=== PATIENT | female | born 1980 | race Caucasian/White ===

== ENCOUNTER 2020-05-16 05:37 | Day surgery (SDC) | payer BC ==
[2020-05-13 09:45] LABS: HEMATOCRIT 37.2 % (36.0-47.0); HEMOGLOBIN 12.5 g/dL (12.0-15.5); MEAN CORPUSCULAR HEMOGLOBIN 28.9 pg (27.0-33.4); MEAN CORPUSCULAR HGB CONC 33.7 g/dL (32.0-36.0); MEAN CORPUSCULAR VOLUME 86 fl (80-97); PLATELET COUNT 318 10^3/uL (150-450); RED BLOOD COUNT 4.32 10^6/uL (3.72-5.28); RED CELL DISTRIBUTION WIDTH 13.9 % (11.5-14.0); WHITE BLOOD COUNT 8.8 10^3/uL (4.0-10.5)
[2020-05-13 09:55] LABS: APPEARANCE,URINE SLIGHTLY-CLOUDY; BILIRUBIN,URINE NEGATIVE (NEGATIVE); COLOR,URINE YELLOW; GLUCOSE, URINE NEGATIVE (NEGATIVE); KETONES,URINE NEGATIVE (NEGATIVE); LEUKOCYTE ESTERASE,URINE NEGATIVE (NEGATIVE); NITRITE,URINE NEGATIVE (NEGATIVE); PROTEIN,URINE NEGATIVE (NEGATIVE); URINE SPECIFIC GRAVITY 1.024; UROBILINOGEN,URINE NEGATIVE mg/dL (<2.0)
[2020-05-13 09:59] LABS: ALBUMIN 3.6 g/dL (3.5-5.0); ALKALINE PHOSPHATASE 77 U/L (38-126); ANION GAP 5 (5-19); ASPARTATE AMINO TRANSFERASE 19 U/L (14-36); BILIRUBIN,TOTAL 0.3 mg/dL (0.2-1.3); BLOOD UREA NITROGEN 13 mg/dL (7-20); CALCIUM 8.9 mg/dL (8.4-10.2); CARBON DIOXIDE 25 mmol/L (22-30); CHLORIDE 107 mmol/L (98-107); GLUCOSE 92 mg/dL (75-110); POTASSIUM 4.2 mmol/L (3.6-5.0); TOTAL PROTEIN 6.5 g/dL (6.3-8.2)
[~2020-05-16 05:37] MED LIST: CEFAZOLIN 2 GM/D5W RTU 2 GM/50 ML RTUPB IV ONE; CEFAZOLIN 2 GM/D5W RTU 2 GM/50 ML RTUPB IV PRN; LACTATED RINGERS 1000 ML IV PRN; LIDOCAINE 0.5% INJ-PF (5 MG/ML) 50 ML SDV SUBCUT PRN
[2020-05-16] MEDS ORDERED: MIDAZOLAM 2 MG/2 ML INJ ONE (07:11)
[2020-05-16] MEDS ORDERED: KETOROLAC TROMETHAMINE 60 MG/2 ML SDV ONE (07:11)
[2020-05-16] MEDS ORDERED: EPHEDRINE SULFATE INJ 50 MG/1 ML AMPULE ONE (07:11)
[2020-05-16] MEDS ORDERED: FENTANYL CITRATE INJ/PF 100 MCG/2 ML AMPUL ONE (07:11)
[2020-05-16] MEDS ORDERED: ONDANSETRON HCL INJ/PF 4 MG/2 ML SDV ONE (07:12)
[2020-05-16] MEDS ORDERED: PROPOFOL INJ 200 MG/20 ML VIAL IV ONE (07:12)
[2020-05-16] MEDS ORDERED: HYDROMORPHONE HCL INJ/PF 2 MG/ML AMPULE ONE (07:12)
[2020-05-16] MEDS ORDERED: VECURONIUM BROMIDE INJ 10 MG VIAL IV ONE (08:41)
[2020-05-16] MEDS ORDERED: GLYCOPYRROLATE 1 MG/5 ML VIAL ONE (08:41)
[2020-05-16] MEDS ORDERED: SUCCINYLCHOLINE CHLORIDE INJ 200 MG/10 ML VIAL ONE (08:41)
[2020-05-16] MEDS ORDERED: NEOSTIGMINE METHYLSULFATE 10 MG/10 ML VIAL ONE (08:41)
[2020-05-16] MEDS ORDERED: FENTANYL CITRATE INJ/PF 100 MCG/2 ML AMPUL IV PRN ×3 (08:50)
[2020-05-16] MEDS ORDERED: MEPERIDINE HCL/PF INJ 25 MG/1 ML DISP.SYRIN IV PRN (08:50)
[2020-05-16] MEDS ORDERED: MORPHINE SULFATE 10 MG/ML INJ IV PRN (08:50)
[2020-05-16] MEDS ORDERED: OXYCODONE-ACETAMINOPHEN 5-325 MG TABLET PO PRN ×3 (08:50→09:35)
[2020-05-16] MEDS ORDERED: PROMETHAZINE HCL INJ 25 MG/1 ML VIAL IV PRN ×3 (08:50→09:35)
[2020-05-16] MEDS ORDERED: DIPHENHYDRAMINE HCL 50 MG/ML VIAL IV PRN (08:50)
[2020-05-16] MEDS ORDERED: ONDANSETRON HCL INJ/PF 4 MG/2 ML SDV IV PRN (08:50)
[2020-05-16] MEDS ORDERED: SIMETHICONE 80 MG TAB.CHEW PO PRN (09:35)
[2020-05-16] MEDS ORDERED: HYDROMORPHONE HCL INJ/PF 2 MG/ML AMPULE IV PRN (09:35)
[2020-05-16] MEDS ORDERED: ACETAMINOPHEN 325 MG TABLET PO PRN (09:35)
[2020-05-16] MEDS ORDERED: RINGERS SOLUTION,LACTATED 1,000 ML IV PRN (09:35)
[2020-05-16] MEDS ORDERED: ACETAMINOPHEN 1,000 MG/100 ML RTUPB IV PRN (09:35)
--- NOTE | 2020-05-16 09:48 | Operative Report ---
Operative Report DATE OF SURGERY: 05/16/20 PREOPERATIVE DIAGNOSIS: Uterine fibroids dysmenorrhea pelvic pain POSTOPERATIVE DIAGNOSIS: Same OPERATION: Da J Luis hysterectomy and bilateral salpingectomy SURGEON: KEV NAYLOR ANESTHESIA: GA TISSUE REMOVED OR ALTERED: Cervix uterus fallopian tubes COMPLICATIONS: None ESTIMATED BLOOD LOSS: 125 cc INTRAOPERATIVE FINDINGS: Enlarged fibroid uterus, normal ovaries PROCEDURE: Patient was taken the OR and placed in supine position. General anesthesia was induced. She was placed in dorsolithotomy position using Cirilo stirrups. Her abdomen perineum and vagina were prepared and draped in sterile fashion. A Casey catheter was placed for drainage of the bladder. A weighted speculum was placed in the vagina and the anterior lip cervix was grasped with a tenaculum. The uterus was sounded to 8 cm and the cervix was dilated. A Split uterine ma nipulator was placed. The balloon was inflated. Next an incision was made above the umbilicus. The fascia was grasped with Allis clamps and elevated. The fascia was incised with curved Rankin scissors. This allowed the placement of a blunt port. Laparoscopy confirmed appropriate placement. The balloon on the port was inflated. Under laparoscopic visualization the lateral ports were placed. The right lower quadrant port was also placed for insufflation. The patient was then placed in a steep Trendelenburg position. The robot was brought to the patient and docked. Visualization of the uterus was good. The tubes had been previously ligated. The ovaries were normal. The fallopian tubes were removed using monopolar cautery and were passed off the field. The ureters could be seen in the pelvis laterally. Next the utero-ovarian pedicles were cauterized with bipolar cautery and cut with monopolar wilman. Likewise the round ligament bilaterally was cauterized with bipolar cautery and cut with monopolar wilman. The broad ligament was also cauterized with bipolar cautery and cut with monopolar wilman staying directly next to the uterus. This was accomplished bilaterally. The anterior leaf of the broad ligament was incised creating a bladder flap. The uterine arteries were identified and staying directly next the uterus were cauterized with bipolar cautery and cut with monopolar wilman. Throughout this process the bladder flap was developed with sharp and blunt dissection. The cardinal ligaments were likewise cauterized with bipolar cautery and cut with monopolar wilman staying directly next to the uterus. At this point we had reached the ring of the V care manipulator. In a circumferential incision was made excising the cervix free from the vaginal cuff. The uterus was removed through the vagina. The monopolar wilman were removed and a needle driver's license examiner was placed through the right port. Using a V lock suture the vaginal cuff was closed. This was accomplished by starting at the right side of the vaginal incision incorporating anterior vaginal mucosa lateral vaginal mucosa and posterior vaginal mucosa and pulling the suture type. The cuff was closed from right to left incorporating anterior vaginal mucosa to posterior vaginal mucosa. Upon reaching the left angle once again anterior vaginal mucosa lateral vaginal mucosa and posterior vaginal mucosa were included in the suture. Several sutures were taken medially and the suture was cut. The pelvis was then irrigated and fluid suctioned free. The pedicles were inspected for hemostasis and good hemostasis was noted. The ureters were small and peristalsing laterally. The robot was undocked from the patient. The ports were removed under laparoscopic visualization and the gas was allowed to escape from the abdomen. The umbilical port was closed at the fascial level with a 2-0 Vicryl stitch and all 4 sites closed at the skin with a 4-0 undyed Vicryl stitch. Patient was extubated in the OR and brought to PACU in stable condition.
[2020-05-16] MEDS: FENTANYL CITRATE INJ/PF 100 MCG/2 ML AMPUL ONE ×2 (09:50→09:55)
[2020-05-16] MEDS ORDERED: MORPHINE SULFATE 10 MG/ML INJ ONE (10:04)
[2020-05-16] MEDS ORDERED: PROMETHAZINE HCL INJ 25 MG/1 ML VIAL ONE (10:13)
[2020-05-16] MEDS: OXYCODONE-ACETAMINOPHEN 5-325 MG TABLET PO PRN ×2 (13:43→18:17)
[2020-05-16] MEDS ORDERED: KETOROLAC TROMETHAMINE INJ/PF 30 MG/1 ML SDV IV SCH (14:00)
[2020-05-16 15:25] LABS: ABSOLUTE BASOPHILS # (AUTO) 0.1 10^3/uL (0.0-0.2); ABSOLUTE LYMPHOCYTES (AUTO) 2.5 10^3/uL (0.5-4.7); ABSOLUTE MONOCYTES (AUTO) 0.8 10^3/uL (0.1-1.4); ABSOLUTE NEUT (AUTO) 12.6 10^3/uL (1.7-8.2); BASOPHILS % (AUTO) 0.5 % (0-2); EOSINOPHILS % (AUTO) 0.1 % (0-6); HEMATOCRIT 35.5 % (36.0-47.0); HEMOGLOBIN 11.7 g/dL (12.0-15.5); LYMPHOCYTES % (AUTO) 15.9 % (13-45); MEAN CORPUSCULAR HEMOGLOBIN 28.3 pg (27.0-33.4); MEAN CORPUSCULAR VOLUME 86 fl (80-97); MONOCYTES % (AUTO) 4.8 % (3-13); PLATELET COUNT 311 10^3/uL (150-450); RED BLOOD COUNT 4.13 10^6/uL (3.72-5.28); SEGMENTED NEUTROPHILS % (AUTO) 78.7 % (42-78); TOTAL CELLS COUNTED % (AUTO) 100 %
[2020-05-16 15:41] LABS: BLOOD UREA NITROGEN 13 mg/dL (7-20); CALCIUM 8.4 mg/dL (8.4-10.2); CARBON DIOXIDE 27 mmol/L (22-30); CHLORIDE 103 mmol/L (98-107); GLUCOSE 98 mg/dL (75-110); POTASSIUM 4.4 mmol/L (3.6-5.0)
[2020-05-16 15:45] LABS: ANION GAP 4 (5-19)
--- NOTE | 2020-05-16 17:21 | PDOC DISCHARGE SUMMARY ---
Impression - Admit/DC Date/PCP Admission Date/Primary Care Provider: JASPER RAMIREZ MD Discharge Date: 05/16/20 - Discharge Diagnosis (1) Menorrhagia Is this a current diagnosis for this admission?: Yes (2) Uterine fibroid Is this a current diagnosis for this admission?: Yes (3) Dysmenorrhea Is this a current diagnosis for this admission?: Yes - Assessment Summary: The patient was admitted for dysmenorrhea heavy menses uterine fibroids and underwent a da J Luis robotic hysterectomy with bilateral salpingectomy. The ovaries were left in place. Please see the operative report. Postoperatively she did well and is up walking in her room this evening. She is tolerating oral pain medications and an oral diet and wishes to go home this evening. She has a follow-up appointment next Wednesday. She will be discharged on Percocet and Motrin. - Additional Information Resuscitation Status: Full Code Discharge Diet: Regular Discharge Activity: Pelvic Rest, Slowly Increase Activity Referrals: JASPER RAMIREZ MD [Primary Care Provider] - KEV NAYLOR MD [ACTIVE STAFF] - 05/22/20 8:30 am (CALL THE OFFICE OF ANY QUESTIONS OR CONCERNS.) Prescriptions: Oxycodone HCl/Acetaminophen [Percocet 5-325 mg Tablet] 1 tab PO Q4HP PRN #30 tablet PRN Reason: Ibuprofen [Motrin 800 mg Tablet] 800 mg PO Q8H #30 tablet Home Medications: Acetaminophen [Tylenol 325 mg Tablet] 325 mg PO PRN PRN 05/13/20 Cetirizine HCl [Zyrtec 10 mg Tablet] 10 mg PO DAILY 05/13/20 Ibuprofen [Motrin 800 mg Tablet] 800 mg PO Q8H #30 tablet 05/16/20 Oxycodone HCl/Acetaminophen [Percocet 5-325 mg Tablet] 1 tab PO Q4HP PRN #30 tablet 05/16/20 Additional Information: followup next Wed History of Present Illiness History of Present Illness: ALEKSANDAR AYALA is a 39 year old female Physical Exam - Physical Exam Vital Signs: Temp Pulse Resp BP Pulse Ox 97.3 F 52 L 16 101/50 L 98 05/16/20 15:49 05/16/20 15:49 05/16/20 15:49 05/16/20 15:49 05/16/20 15:49 Intake & Output 05/15/20 05/16/20 05/17/20 06:59 06:59 06:59 Intake Total 0 1700 Output Total 185 Balance 0 1515 Weight 94.8 kg Results Laboratory Results: WBC 16.0 10^3/uL (4.0-10.5) H 05/16/20 15:09 RBC 4.13 10^6/uL (3.72-5.28) 05/16/20 15:09 Hgb 11.7 g/dL (12.0-15.5) L 05/16/20 15:09 Hct 35.5 % (36.0-47.0) L 05/16/20 15:09 MCV 86 fl (80-97) 05/16/20 15:09 MCH 28.3 pg (27.0-33.4) 05/16/20 15:09 MCHC 33.0 g/dL (32.0-36.0) 05/16/20 15:09 RDW 14.0 % (11.5-14.0) 05/16/20 15:09 Plt Count 311 10^3/uL (150-450) 05/16/20 15:09 Lymph % (Auto) 15.9 % (13-45) 05/16/20 15:09 [place] % (Auto) 4.8 % (3-13) 05/16/20 15:09 Eos % (Auto) 0.1 % (0-6) 05/16/20 15:09 Baso % (Auto) 0.5 % (0-2) 05/16/20 15:09 Absolute Neuts (auto) 12.6 10^3/uL (1.7-8.2) H 05/16/20 15:09 Absolute Lymphs (auto) 2.5 10^3/uL (0.5-4.7) 05/16/20 15:09 Absolute Monos (auto) 0.8 10^3/uL (0.1-1.4) 05/16/20 15:09 Absolute Eos (auto) 0.0 10^3/uL (0.0-0.6) 05/16/20 15:09 Absolute Basos (auto) 0.1 10^3/uL (0.0-0.2) 05/16/20 15:09 Seg Neutrophils % 78.7 % (42-78) H 05/16/20 15:09 Sodium 133.8 mmol/L (137-145) L 05/16/20 15:09 Potassium 4.4 mmol/L (3.6-5.0) 05/16/20 15:09 Chloride 103 mmol/L (98-107) 05/16/20 15:09 Carbon Dioxide 27 mmol/L (22-30) 05/16/20 15:09 Anion Gap 4 (5-19) L 05/16/20 15:09 BUN 13 mg/dL (7-20) 05/16/20 15:09 Creatinine 1.03 mg/dL (0.52-1.25) 05/16/20 15:09 Est GFR ( Amer) > 60 (>60) 05/16/20 15:09 Est GFR (MDRD) Non-Af 59 (>60) L 05/16/20 15:09 Glucose 98 mg/dL (75-110) 05/16/20 15:09 Calcium 8.4 mg/dL (8.4-10.2) 05/16/20 15:09 Total Bilirubin 0.3 mg/dL (0.2-1.3) 05/13/20 08:15 Direct Bilirubin 0.0 mg/dL (0.0-0.4) 05/13/20 08:15 Neonat Total Bilirubin Not Reportable 05/13/20 08:15 Neonat Direct Bilirubin Not Reportable 05/13/20 08:15 Neonat Indirect Bili Not Reportable 05/13/20 08:15 AST 19 U/L (14-36) 05/13/20 08:15 ALT 16 U/L (<35) 05/13/20 08:15 Alkaline Phosphatase 77 U/L (38-126) 05/13/20 08:15 Total Protein 6.5 g/dL (6.3-8.2) 05/13/20 08:15 Albumin 3.6 g/dL (3.5-5.0) 05/13/20 08:15 Urine Color YELLOW 05/13/20 08:20 Urine Appearance SLIGHTLY-CLOUDY 05/13/20 08:20 Urine pH 5.0 (5.0-9.0) 05/13/20 08:20 Ur Specific [place] 1.024 05/13/20 08:20 Urine Protein NEGATIVE mg/dL (NEGATIVE) 05/13/20 08:20 Urine Glucose (UA) NEGATIVE mg/dL (NEGATIVE) 05/13/20 08:20 Urine Ketones NEGATIVE mg/dL (NEGATIVE) 05/13/20 08:20 Urine Blood MODERATE (NEGATIVE) H 05/13/20 08:20 Urine Nitrite NEGATIVE (NEGATIVE) 05/13/20 08:20 Urine Bilirubin NEGATIVE (NEGATIVE) 05/13/20 08:20 Urine Urobilinogen NEGATIVE mg/dL (<2.0) 05/13/20 08:20 Ur Leukocyte Esterase NEGATIVE (NEGATIVE) 05/13/20 08:20 Urine WBC (Auto) 1 /HPF 05/13/20 08:20 Urine RBC (Auto) 14 /HPF 05/13/20 08:20 Squamous Epi Cells Auto 7 /HPF 05/13/20 08:20 Urine Mucus (Auto) OCC /LPF 05/13/20 08:20 Urine Ascorbic Acid NEGATIVE (NEGATIVE) 05/13/20 08:20 Urine HCG, Qual NEGATIVE (NEGATIVE) 05/16/20 05:45 COVID-19 Source NASOPHARYNGEAL 05/13/20 08:00 COVID-19 (RADHAMES) NOT DETECTED 05/13/20 08:00 Blood Type O POSITIVE 05/13/20 08:15 Antibody Screen NEGATIVE 05/13/20 08:15 Stroke Is this a Stroke Patient?: No Acute Heart Failure - Is this a Heart Failure Patient?: No
[2020-05-16] MEDS ORDERED: DOCUSATE SODIUM 100 MG CAPSULE PO SCH (18:00)
[2020-05-16 18:06] VITALS: BP 127/65
[2020-05-17] MEDS ORDERED: PRENATAL VITAMIN W DHA CAPSULE PO SCH (10:00)
[2020-05-17] MEDS ORDERED: IBUPROFEN 800 MG TABLET PO SCH (12:00)
== END 2020-05-16 18:45 | disposition home or self-care (01) ==
LOC: OROUT 05:37 → 2N 11:00 → OROUT 18:45
PROVIDERS: ATTEND Obstetrics & Gynecology
DX: N92.0 Excessive and frequent menstruation with regular cycle (principal); N94.6 Dysmenorrhea, unspecified; N83.8 Other noninflammatory disorders of ovary, fallopian tube and broad ligament; N80.0 Endometriosis of uterus; D25.9 Leiomyoma of uterus, unspecified; Z87.891 Personal history of nicotine dependence; Z03.818 Encounter for observation for suspected exposure to other biological agents ruled out
CPT/HCPCS: 58571; S2900; 36415; 80048; 80053; 81001; 81025; 85025; 85027; 86850; 86900; 86901; 87635; 88307; 94799; C1758; C9803; J0330; J0690; J1170; J1885; J2250; J2270; J2405; J2550; J2704; J2710; J3010; J3490